=== PATIENT | female | born 1955 | race Caucasian/White ===

== ENCOUNTER 2020-08-05 12:55 | Emergency (ER) | payer BC, OTHER ==
[2020-08-05 14:26] LABS: HEMOGLOBIN 14.8 gm/dl (12.3-15.3); RED BLOOD COUNT 4.76 M/UL (4.00-5.10); WHITE BLOOD COUNT 10.8 K/UL (4.5-11.0)
[2020-08-05 14:47] LABS: BUN/CREATININE RATIO 13 (0-10)
[2020-08-05] MEDS ORDERED: CARAFATE1 GM PO (16:54)
[2020-08-05] MEDS ORDERED: LANSOPRAZOLE30 MG PO (16:54)
== END 2020-08-05 17:40 | disposition home or self-care (01) ==
LOC: ER1 12:55
PROVIDERS: Family Medicine
DX: R10.13 Epigastric pain (principal); N17.9 Acute kidney failure, unspecified; E11.65 Type 2 diabetes mellitus with hyperglycemia; R11.2 Nausea with vomiting, unspecified; I10 Essential (primary) hypertension; Z88.1 Allergy status to other antibiotic agents; Z20.822 Contact with and (suspected) exposure to COVID-19
CPT/HCPCS: 71045; 80053; 81001; 82009; 82550; 82553; 83690; 83874; 84484; 85025; 93005; 96374; 99284; J2405; U0002

== ENCOUNTER → 2020-08-29 | Outpatient (CLI) | payer BC, OTHER ==
[~2020-08-29] MED LIST: CARAFATE1 GM PO; LANSOPRAZOLE30 MG PO
== END ==
LOC: CT 10:09
DX: R93.421 Abnormal radiologic findings on diagnostic imaging of right kidney (principal); R93.422 Abnormal radiologic findings on diagnostic imaging of left kidney
CPT/HCPCS: 74170; Q9965